=== PATIENT | male | born 1945 ===

== ENCOUNTER 2020-02-19 08:20 | Outpatient (CLI) | payer OTHER | END 2020-02-19 08:22 | disposition home or self-care (01) | LOC: SONOGRAMA 08:20 | PROVIDERS: ATTEND General Practice | DX: Q61.01 Congenital single renal cyst (principal); R10.30 Lower abdominal pain, unspecified; R10.32 Left lower quadrant pain; R10.31 Right lower quadrant pain; R39.14 Feeling of incomplete bladder emptying ==

== ENCOUNTER → 2022-03-23 | Outpatient (CLI) | payer OTHER | END | disposition home or self-care (01) | LOC: RAD 08:33 | PROVIDERS: ATTEND General Practice | DX: M54.50 Low back pain, unspecified (principal) ==

== ENCOUNTER 2024-10-01 09:23 | Outpatient (CLI) | payer OTHER | END 2024-10-01 09:30 | disposition home or self-care (01) | LOC: RAD 09:23 | PROVIDERS: ATTEND General Practice | DX: M25.562 Pain in left knee (principal); M25.521 Pain in right elbow; R22.42 Localized swelling, mass and lump, left lower limb; M70.31 Other bursitis of elbow, right elbow ==

== ENCOUNTER 2024-11-01 09:07 | Outpatient (CLI) | payer OTHER | END 2024-11-01 09:10 | disposition home or self-care (01) | LOC: RAD 09:07 | PROVIDERS: ATTEND Orthopaedic Surgery | DX: M25.551 Pain in right hip (principal); M25.552 Pain in left hip ==